=== PATIENT | female | born 1975 | race Caucasian/White ===

== ENCOUNTER 2018-04-19 10:12 | Emergency (ER) | payer OTHER ==
[~2018-04-19] VITALS: Ht 170.2 cm; Wt 97.7 kg
[~2018-04-19 10:12] MED LIST: DICY10CA88 PO; MULT-785 PO; RES15C PO
[2018-04-19 10:16] VITALS: BP 133/84
== END 2018-04-19 10:45 | disposition home or self-care (01) ==
LOC: ER 10:13
DX: J02.9 Acute pharyngitis, unspecified (principal); R42 Dizziness and giddiness; M54.9 Dorsalgia, unspecified; M54.2 Cervicalgia; Z90.49 Acquired absence of other specified parts of digestive tract; Z79.899 Other long term (current) drug therapy
CPT/HCPCS: 99281

== ENCOUNTER 2018-04-26 08:36 | Emergency (ER) | payer OTHER ==
[~2018-04-26] VITALS: Ht 170.2 cm; Wt 97.7 kg
[2018-04-26 09:08] LABS: BASOPHILS % (AUTO) 0.2 % (0-1); EOSINOPHILS # (AUTO) 0.1 X10'3 (0-0.9); EOSINOPHILS % (AUTO) 1.3 % (0-6); HEMATOCRIT 40.6 % (35.0-45.0); HEMOGLOBIN 13.8 g/dl (12.0-16.0); LYMPHOCYTES # (AUTO) 1.8 X10'3 (1.1-4.8); LYMPHOCYTES % (AUTO) 24.2 % (21-51); MEAN CORPUSCULAR HEMOGLOBIN 29.8 PG (27.0-31.0); MEAN CORPUSCULAR HGB CONC 33.9 % (33.0-36.5); MEAN PLATELET VOLUME 6.6 FL (7.4-10.4); MONOCYTES # (AUTO) 0.6 X10'3 (0-0.9); MONOCYTES % (AUTO) 7.4 % (2-12); NEUTROPHILS # (AUTO) 5.1 X10'3 (1.8-7.7); NEUTROPHILS % (AUTO) 66.9 % (42-75); PLATELET COUNT 401 X10'3 (140-440); RED BLOOD COUNT 4.61 X10'6 (4.20-5.60); RED CELL DISTRIBUTION WIDTH 13.7 % (11.5-14.5); WHITE BLOOD COUNT 7.6 X10'3 (4.5-11.0)
[2018-04-26 09:19] LABS: INR 0.9 INR; PROTHROMBIN TIME 9.8 SECONDS (9.0-12.0)
[2018-04-26 09:24] LABS: ALANINE AMINOTRANSFERASE 21 U/L (12-78); ALBUMIN 3.5 G/DL (3.4-5.0); ALBUMIN/GLOBULIN RATIO 0.8 (1.1-1.5); ALKALINE PHOSPHATASE 103 IU/L (46-116); ANION GAP 11 (8-16); ASPARTATE AMINO TRANSFERASE 16 U/L (10-37); BILIRUBIN,TOTAL 0.2 MG/DL (0.1-1.0); BLOOD UREA NITROGEN 7 MG/DL (7-18); BUN/CREATININE RATIO 6.3 (6.6-38.0); CALCIUM 9.2 MG/DL (8.5-10.1); CHLORIDE 99 MMOL/L (99-107); CREATININE 1.12 MG/DL (0.40-0.90); GLUCOSE 190 MG/DL (70-104); POTASSIUM 3.5 MMOL/L (3.5-5.1); SODIUM 137 MMOL/L (135-145); TOTAL CARBON DIOXIDE 26.7 MMOL/L (24-32); eGFR 54 ML/MIN
[2018-04-26 09:34] LABS: CLARITY,URINE SLIGHTLY CLOUDY (Clear); COLOR,URINE YELLOW (Yellow); GLUCOSE, URINE NEGATIVE (Neg); KETONES,URINE TRACE mg/dl (Neg); LEUKOCYTE ESTERASE ,URINE NEGATIVE (Neg); NITRITES, URINE NEGATIVE (Neg); OCCULT BLOOD,URINE NEGATIVE (Neg); PROTEIN,URINE 30 mg/dl (Neg)
[2018-04-26 09:35] LABS: URINE HCG NEGATIVE (NEG)
[2018-04-26 09:40] LABS: UA COLLECTION TYPE CLN CATCH MIDSTREAM
[2018-04-26] MEDS ORDERED: fluconazole 150mg tablet PO ONE (09:45)
[2018-04-26 09:53] LABS: BACTERIA,URINE 3+ /HPF (Neg); RBC,URINE NONE SEEN /HPF (0-2); SQUAMOUS EPITHELIAL CELL,UR MANY /LPF (FEW); WBC,URINE 0-4 /HPF (0-4)
[2018-04-26] MEDS ORDERED: POLY119P2 PO (12:14)
[2018-04-26] MEDS ORDERED: BISA-155 PO (12:14)
[2018-04-26 12:20] VITALS: BP 128/83
== END 2018-04-26 12:22 | disposition home or self-care (01) ==
LOC: ER 08:37
DX: R10.32 Left lower quadrant pain (principal); Z90.49 Acquired absence of other specified parts of digestive tract; Z79.899 Other long term (current) drug therapy
CPT/HCPCS: 36415; 76830; 76856; 80053; 81001; 81025; 85025; 85610; 99285

== ENCOUNTER 2019-10-26 14:08 | Emergency (ER) | payer OTHER ==
[~2019-10-26] VITALS: Ht 170.2 cm; Wt 96.5 kg
[~2019-10-26 14:08] MED LIST changes: +BISA-155 PO; +POLY119P2 PO
[2019-10-26] MEDS ORDERED: ondansetron/PF 4mg/2ml inj IV ONE (14:40)
[2019-10-26] MEDS ORDERED: normal saline 1000ml 1,000 ML IV ONE (14:40)
[2019-10-26] MEDS ORDERED: morphine 4 MG/ML inj SYRINge IV ONE (14:40)
[2019-10-26] MEDS ORDERED: proCHLORperazine 10 MG/2 ml inj IV ONE (14:40)
[2019-10-26 15:14] LABS: OCCULT BLOOD STOOL POSITIVE (Neg)
[2019-10-26 15:17] LABS: BASOPHILS # (AUTO) 0.1 X10'3 (0-0.2); BASOPHILS % (AUTO) 1.3 % (0-1); EOSINOPHILS # (AUTO) 0.1 X10'3 (0-0.9); EOSINOPHILS % (AUTO) 0.9 % (0-6); HEMATOCRIT 40.9 % (35.0-45.0); LYMPHOCYTES # (AUTO) 1.1 X10'3 (1.1-4.8); LYMPHOCYTES % (AUTO) 14.7 % (21-51); MEAN CORPUSCULAR HEMOGLOBIN 30.5 PG (27.0-31.0); MEAN CORPUSCULAR HGB CONC 34.3 g/dL (33.0-36.5); MEAN CORPUSCULAR VOLUME 88.9 FL (78-98); MEAN PLATELET VOLUME 7.2 FL (7.4-10.4); MONOCYTES # (AUTO) 0.4 X10'3 (0-0.9); NEUTROPHILS # (AUTO) 5.9 X10'3 (1.8-7.7); NEUTROPHILS % (AUTO) 78.1 % (42-75); PLATELET COUNT 322 X10'3 (140-440); RED CELL DISTRIBUTION WIDTH 13.4 % (11.5-14.5); WHITE BLOOD COUNT 7.6 X10'3 (4.5-11.0)
[2019-10-26 15:31] LABS: C DIFF ANTIGEN NEGATIVE (NEGATIVE); C DIFF SPECIMEN=DIARRHEA? ACCEPTABLE; C DIFFICILE TOXINS A&B NEGATIVE (Neg)
[2019-10-26] MEDS ORDERED: [UNRECOGNIZED DRUG - CODE] PO (15:39)
[2019-10-26] MEDS ORDERED: ONDA-103 PO (15:39)
[2019-10-26] MEDS ORDERED: METR-159 PO (15:39)
[2019-10-26 15:43] LABS: ALANINE AMINOTRANSFERASE 16 U/L (12-78); ALBUMIN 3.4 G/DL (3.4-5.0); ALBUMIN/GLOBULIN RATIO 0.9 (1.1-1.5); ALKALINE PHOSPHATASE 107 IU/L (46-116); ANION GAP 12 (8-16); ASPARTATE AMINO TRANSFERASE 15 U/L (10-37); BILIRUBIN,TOTAL 0.4 MG/DL (0.1-1.0); BLOOD UREA NITROGEN 15 MG/DL (7-18); BUN/CREATININE RATIO 13.5 (6.6-38.0); CALCIUM 9.2 MG/DL (8.5-10.1); CHLORIDE 100 MMOL/L (99-107); CREATININE 1.11 MG/DL (0.40-0.90); GLUCOSE 370 MG/DL (70-104); LIPASE 107 U/L (73-393); POTASSIUM 3.7 MMOL/L (3.5-5.1); SODIUM 134 MMOL/L (135-145); TOTAL CARBON DIOXIDE 22.2 MMOL/L (24-32); TOTAL PROTEIN 7.2 G/DL (6.4-8.2); eGFR 54 ML/MIN
[2019-10-26] MEDS ORDERED: ringers solution, lacted 1,000 ML IV ONE (16:25)
[2019-10-26 20:03] VITALS: BP 126/66
== END 2019-10-26 20:07 | disposition home or self-care (01) ==
LOC: ER 14:09
DX: K52.9 Noninfective gastroenteritis and colitis, unspecified (principal); Z90.49 Acquired absence of other specified parts of digestive tract; Z72.89 Other problems related to lifestyle; Z79.899 Other long term (current) drug therapy
CPT/HCPCS: 36415; 74176; 80053; 82272; 82948; 83605; 83690; 84145; 85025; 87045; 87046; 87324; 87449; 96361; 96374; 96375; 99284; J0780; J2270; J2405; J7030; J7120

== ENCOUNTER 2021-02-01 11:14 | Emergency (ER) | payer BC, OTHER ==
[~2021-02-01] VITALS: Ht 170.2 cm; Wt 81.8 kg
[~2021-02-01 11:14] MED LIST changes: +ONDA-103 PO
[2021-02-01 11:39] VITALS: BP 117/78
[2021-02-01] MEDS ORDERED: ketorolac tromethamine 15mg/ml inj. IM ONE (12:15)
== END 2021-02-01 12:42 | disposition home or self-care (01) ==
LOC: ER 11:15 → EEVIPCON 11:15 → ER 12:42
DX: M25.572 Pain in left ankle and joints of left foot (principal); Z90.89 Acquired absence of other organs; Z72.89 Other problems related to lifestyle; Z79.899 Other long term (current) drug therapy
CPT/HCPCS: 73610; 73630; 96372; 99284; J1885